=== PATIENT | male | born 1975 | race Caucasian/White ===

== ENCOUNTER 2023-06-20 18:29 | Emergency (ER) | payer BC ==
[~2023-06-20] VITALS: Ht 177.8 cm; Wt 100.0 kg
[~2023-06-20 18:29] MED LIST: AMOXICILLIN 8751 TAB PO; HYZAAR 25 MG-101 TAB PO; MOTRIN 600600 MG/TAB PO; NORCO 325 MG-51 TAB PO; SYNTHROID0.088 MG/T PO
[2023-06-20 18:51] VITALS: TEMP 98.5
[2023-06-20 19:12] LABS: BASO % 0.3 % (0.0-2.0); EOS # 0.1 K/mm3 (0.0-0.7); EOS % 0.8 % (0.0-4.0); GRAN # 8.4 K/mm3 (1.4-6.5); GRAN % 70.2 % (42.2-75.2); HEMATOCRIT 43.9 % (42.0-52.0); LYMPH # 2.5 K/mm3 (1.2-3.4); LYMPH % 20.5 % (20.0-51.0); MEAN CELL VOLUME 89 fl (80.0-100.0); MEAN CORPUSCULAR HEMOGLOBIN 31 pg (27-31); MEAN CORPUSCULAR HGB CONC 34 g/dl (33.0-37.0); MEAN PLATELET VOLUME 9.4 fl (7.4-10.4); MONO # 0.9 K/mm3 (0.1-0.6); MONO % 7.5 % (1.7-9.3); PLATELET COUNT 682 K/mm3 (130-400); RED BLOOD COUNT 4.91 M/mm3 (4.20-5.60); REDCELL DISTRIBUTION WIDTH-CV 13.8 % (11.5-14.5)
[2023-06-20] MEDS ORDERED: LR 1,000 ML IV ONE (19:15)
[2023-06-20 19:33] LABS: ALBUMIN 3.3 g/dL (3.5-5.0); BILIRUBIN,TOTAL 0.8 mg/dL (0.2-1.2); C-REACTIVE PROTEIN 29.18 mg/dL (0.00-0.50); CALCIUM 10.1 mg/dL (8.4-10.2); CREATININE, serum 1.29 mg/dL (0.72-1.25); POTASSIUM 3.5 mEq/L (3.5-4.5); TOTAL PROTEIN 8.3 g/dl (6.2-8.1)
[2023-06-20 20:00] LABS: URINE APPEARANCE CLEAR (CLEAR/HAZY); URINE BLOOD TRACE (NEGATIVE); URINE COLOR Dark Yellow (YELLOW); URINE GLUCOSE NEGATIVE (NEGATIVE); URINE KETONE NEGATIVE (NEGATIVE); URINE NITRATE NEGATIVE (NEGATIVE); URINE PROTEIN(semi-quant) 1+ (NEGATIVE); URINE UROBILINOGEN 0.2 E.U/dL (0.2-1.0)
[2023-06-20 20:05] LABS: COLLECTION METHOD CLEAN CATCH
[2023-06-20 20:28] VITALS: BP 128/78; PULSE 65
== END 2023-06-20 20:28 | disposition home or self-care (01) ==
LOC: COL.ER 18:29
PROVIDERS: Family Medicine
DX: R10.11 Right upper quadrant pain (principal); G89.18 Other acute postprocedural pain; Z90.89 Acquired absence of other organs
CPT/HCPCS: J7120

== ENCOUNTER → 2023-10-15 | Outpatient (CLI) | payer BC | LOC: COL.RAD 12:36 → COL.LAB 12:36 | DX: M79.604 Pain in right leg (principal) ==

== ENCOUNTER 2023-11-20 09:58 | Outpatient (RCR) | payer BC | END 2023-11-20 12:00 | disposition home or self-care (01) | LOC: WSPT 09:58 | DX: M79.661 Pain in right lower leg (principal); M79.604 Pain in right leg ==